=== PATIENT | female | born 1990 | race Hispanic/Latino ===

== ENCOUNTER → 2025-03-06 | Outpatient (REF) | payer OTHER | LOC: US 09:20 | PROVIDERS: ATTEND Family Medicine | DX: R10.84 Generalized abdominal pain (principal) | CPT/HCPCS: 76700 ==

== ENCOUNTER → 2025-03-15 | Day surgery (SDC) | payer OTHER ==
[~2025-03-15] MED LIST: FAMOTIDINE20 MG PO; FENTANYL CITRATE/PF 100MCG/2 ML INJ ONE; LIDOCAINE HCL 2% LOCAL INJ 5 ML SDV VIAL INJ ONE; METOCLOPRAMIDE HCL 10 MG/2ML VIAL ONE; PROPOFOL IV EMULSION 10 MG/ML 20 ML VIAL ONE
[2025-03-15] MEDS: LACTATED RINGER'S 1,000 ML ONE (05:48)
[2025-03-15 07:29] VITALS: TEMP 98.4
[2025-03-15 08:00] VITALS: BP 115/78; PULSE 77; RESP 16; O2SAT 97
== END | disposition home or self-care (01) ==
LOC: OR 05:19
PROVIDERS: ATTEND Internal Medicine Gastroenterology
DX: K29.50 Unspecified chronic gastritis without bleeding (principal); K20.90 Esophagitis, unspecified without bleeding; E66.01 Morbid (severe) obesity due to excess calories; K80.21 Calculus of gallbladder without cholecystitis with obstruction; Z68.30 Body mass index [BMI] 30.0-30.9, adult; Z71.3 Dietary counseling and surveillance; Z80.0 Family history of malignant neoplasm of digestive organs
CPT/HCPCS: 43239; 81025; J2003; J2470; J2704; J2765; J3010; J7121